=== PATIENT | female | born 1960 | race Caucasian/White ===

== ENCOUNTER 2023-08-18 20:53 | Inpatient (IN) | payer MEDICARE, OTHER ==
[~2023-08-18] VITALS: Ht 152.4 cm; Wt 69.4 kg
[2023-08-18] MEDS ORDERED: REMEDY ESSENTIAL ZINC PASTE 113 GM TOP PRN (21:15)
[2023-08-18 21:30] VITALS: BP 164/93; TEMP 98.1; O2SAT 97
[2023-08-18] MEDS ORDERED: OXYCODONE HCL 5 MG TABLET PO PRN (22:00)
[2023-08-18] MEDS ORDERED: CARB1TAB21 PO ×6 (22:30)
[2023-08-18] MEDS ORDERED: CEPH250C PO (22:30)
[2023-08-18] MEDS ORDERED: HALO5TAB12 PO ×2 (22:30)
[2023-08-18] MEDS ORDERED: LABE100T5 PO (22:30)
[2023-08-18] MEDS ORDERED: BENZ-13 PO (22:30)
[2023-08-18] MEDS ORDERED: ALBU8.5H8 INH ×2 (22:30)
[2023-08-18] MEDS ORDERED: BENZ1TAB7 PO (22:30)
[2023-08-18] MEDS: HYDROMORPHONE HCL 2 MG TABLET PO PRN (22:47)
[2023-08-18 23:00] VITALS: BP 145/81; TEMP 98.4; O2SAT 97
[2023-08-18] MEDS ORDERED: MAGN200T4 PO (23:36)
[2023-08-18] MEDS ORDERED: MYCO180T3 PO (23:36)
[2023-08-18] MEDS ORDERED: ONDA4TAB5 PO (23:36)
[2023-08-18] MEDS ORDERED: MULT-1119 PO (23:36)
[2023-08-18] MEDS ORDERED: PRED2.5T PO (23:36)
[2023-08-18] MEDS ORDERED: ONDA4TAB11 PO (23:36)
[2023-08-18] MEDS ORDERED: TACR1CAP2 PO (23:36)
[2023-08-18] MEDS ORDERED: VALG450T4 PO (23:36)
[2023-08-18] MEDS ORDERED: PANT40TA2 PO (23:36)
[2023-08-19 01:12] VITALS: O2SAT 98
[2023-08-19 05:56] VITALS: BP 130/75; TEMP 98.3; O2SAT 97
[2023-08-19 08:00] VITALS: BP 113/75; TEMP 98.4; O2SAT 98
[2023-08-19] MEDS: HYDROMORPHONE HCL 2 MG TABLET PO PRN ×2 (11:59→22:43)
[2023-08-19] MEDS ORDERED: HALO5TAB PO (12:00)
[2023-08-19] MEDS ORDERED: TACROLIMUS PO (12:03)
[2023-08-19] MEDS ORDERED: CARB1TAB21 PO (12:12)
[2023-08-19] MEDS ORDERED: BENZONATATE 100 MG CAPSULE PO PRN (12:30)
[2023-08-19] MEDS ORDERED: predniSONE 5 MG TABLET PO SCH (13:00)
[2023-08-19] MEDS: MAGNESIUM OXIDE 400 MG TABLET PO SCH ×2 (13:18→17:24)
[2023-08-19 14:06] VITALS: O2SAT 98
[2023-08-19 15:04] VITALS: BP 122/78; TEMP 98.2; O2SAT 96
[2023-08-19] MEDS: predniSONE 5 MG TABLET PO SCH (15:04)
[2023-08-19] MEDS: CARBIDOPA/LEVODOPA 25-100MG TABLET PO SCH (15:04)
[2023-08-19] MEDS ORDERED: LEVO25TA9 PO (16:27)
[2023-08-19] MEDS ORDERED: MYCOPHENOLATE SODIUM 540 MG PO SCH (17:00)
[2023-08-19] MEDS: HALOPERIDOL 5 MG TABLET PO SCH (17:24)
[2023-08-19] MEDS: MYCOPHENOLATE SODIUM 180 MG TABLET.DR PO SCH (17:24)
[2023-08-19 20:11] VITALS: BP 145/91; TEMP 98.8; O2SAT 95
[2023-08-20 04:41] VITALS: BP 139/79; TEMP 98.2; O2SAT 98
[2023-08-20] MEDS: LEVOTHYROXINE SODIUM 25 MCG TABLET PO SCH (06:27)
[2023-08-20 08:00] VITALS: BP 140/80; TEMP 98.2; O2SAT 98
[2023-08-20] MEDS ORDERED: ONDANSETRON ODT 4 MG TAB.RAPDIS SL PRN (08:15)
[2023-08-20] MEDS: TACROLIMUS ANHYDROUS 0.5 MG CAPSULE PO SCH (08:25)
[2023-08-20] MEDS: MAGNESIUM OXIDE 400 MG TABLET PO SCH ×3 (08:26→16:23)
[2023-08-20] MEDS: PANTOPRAZOLE SODIUM 40 MG TABLET.DR PO SCH (08:26)
[2023-08-20] MEDS: BENZTROPINE MESYLATE 1 MG TABLET PO SCH (08:26)
[2023-08-20] MEDS: CARBIDOPA/LEVODOPA 25-100MG TABLET PO SCH (08:26)
[2023-08-20] MEDS: predniSONE 5 MG TABLET PO SCH (08:26)
[2023-08-20] MEDS: HALOPERIDOL 5 MG TABLET PO SCH ×2 (08:26→16:23)
[2023-08-20] MEDS: LABETALOL HCL 100 MG TABLET PO SCH (08:26)
[2023-08-20] MEDS: MULTIVITAMINS,THERAPEUTIC TABLET PO SCH (08:26)
[2023-08-20] MEDS: NEPRO (VANILLA) 237 ML CAN PO SCH (08:27)
[2023-08-20] MEDS: MYCOPHENOLATE SODIUM 180 MG TABLET.DR PO SCH ×2 (08:27→16:24)
[2023-08-20] MEDS ORDERED: VALGANCICLOVIR HCL 450 MG PO SCH (09:00)
[2023-08-20] MEDS ORDERED: VALGANCICLOVIR 450 MG PO SCH (09:00)
[2023-08-20] MEDS ORDERED: TACROLIMUS ANHYDROUS PO SCH (09:00)
[2023-08-20] MEDS: HYDROMORPHONE HCL 2 MG TABLET PO PRN (11:35)
[2023-08-20] MEDS: VALGANCICLOVIR 450 MG PO SCH (12:14)
[2023-08-20 14:04] VITALS: BP 123/65; TEMP 98.1; O2SAT 96
[2023-08-20 18:35] VITALS: BP 122/63; TEMP 98; O2SAT 96
[2023-08-21 03:58] VITALS: BP 132/64; TEMP 98.1; O2SAT 97
[2023-08-21] MEDS: LEVOTHYROXINE SODIUM 25 MCG TABLET PO SCH (05:23)
[2023-08-21 08:00] VITALS: BP 152/85; TEMP 98.2; O2SAT 96
[2023-08-21] MEDS: LABETALOL HCL 100 MG TABLET PO SCH (08:56)
[2023-08-21] MEDS: BENZTROPINE MESYLATE 1 MG TABLET PO SCH (08:56)
[2023-08-21] MEDS: NEPRO (VANILLA) 237 ML CAN PO SCH (08:57)
[2023-08-21] MEDS: HYDROMORPHONE HCL 2 MG TABLET PO PRN ×2 (08:57→13:10)
[2023-08-21] MEDS: MAGNESIUM OXIDE 400 MG TABLET PO SCH ×3 (08:57→17:18)
[2023-08-21] MEDS: MULTIVITAMINS,THERAPEUTIC TABLET PO SCH (08:57)
[2023-08-21] MEDS: HALOPERIDOL 5 MG TABLET PO SCH ×2 (08:57→17:19)
[2023-08-21] MEDS: CARBIDOPA/LEVODOPA 25-100MG TABLET PO SCH (08:57)
[2023-08-21] MEDS: MYCOPHENOLATE SODIUM 180 MG TABLET.DR PO SCH ×2 (08:57→17:20)
[2023-08-21] MEDS: PANTOPRAZOLE SODIUM 40 MG TABLET.DR PO SCH (09:03)
[2023-08-21] MEDS: TACROLIMUS ANHYDROUS 0.5 MG CAPSULE PO SCH (09:03)
[2023-08-21] MEDS: predniSONE 5 MG TABLET PO SCH (09:10)
[2023-08-21] MEDS: DOCUSATE SODIUM 100 MG CAPSULE PO SCH ×2 (10:36→20:03)
[2023-08-21] MEDS: VALGANCICLOVIR 450 MG PO SCH (13:07)
[2023-08-21 15:47] VITALS: BP 131/79; TEMP 98.8; O2SAT 98
[2023-08-21 20:20] VITALS: BP 100/66; TEMP 97.8; O2SAT 97
[2023-08-22 04:41] VITALS: BP 120/67; TEMP 98.7; O2SAT 93
[2023-08-22] MEDS: HYDROMORPHONE HCL 2 MG TABLET PO PRN ×3 (05:36→13:40)
[2023-08-22] MEDS: LEVOTHYROXINE SODIUM 25 MCG TABLET PO SCH (05:36)
[2023-08-22 07:32] VITALS: BP 125/76; TEMP 97.9; O2SAT 98
[2023-08-22] MEDS: BENZTROPINE MESYLATE 1 MG TABLET PO SCH (08:36)
[2023-08-22] MEDS: CARBIDOPA/LEVODOPA 25-100MG TABLET PO SCH ×2 (08:36→16:56)
[2023-08-22] MEDS: TACROLIMUS ANHYDROUS 0.5 MG CAPSULE PO SCH (08:37)
[2023-08-22] MEDS: MAGNESIUM OXIDE 400 MG TABLET PO SCH ×3 (08:37→16:55)
[2023-08-22] MEDS: DOCUSATE SODIUM 100 MG CAPSULE PO SCH ×2 (08:38→20:33)
[2023-08-22] MEDS: MULTIVITAMINS,THERAPEUTIC TABLET PO SCH (08:38)
[2023-08-22] MEDS: HALOPERIDOL 5 MG TABLET PO SCH ×2 (08:38→16:56)
[2023-08-22] MEDS: predniSONE 5 MG TABLET PO SCH (08:38)
[2023-08-22] MEDS: PANTOPRAZOLE SODIUM 40 MG TABLET.DR PO SCH (08:38)
[2023-08-22] MEDS: LABETALOL HCL 100 MG TABLET PO SCH (08:38)
[2023-08-22] MEDS: MYCOPHENOLATE SODIUM 180 MG TABLET.DR PO SCH ×2 (08:43→16:59)
[2023-08-22] MEDS: NEPRO (VANILLA) 237 ML CAN PO SCH (08:43)
[2023-08-22] MEDS: VALGANCICLOVIR 450 MG PO SCH (12:20)
[2023-08-22 15:53] VITALS: BP 134/82; TEMP 98.4; O2SAT 98
[2023-08-22 20:00] VITALS: BP 137/72; TEMP 98.3; O2SAT 97
[2023-08-23] MEDS: HYDROMORPHONE HCL 2 MG TABLET PO PRN ×4 (03:08→23:15)
[2023-08-23 04:00] VITALS: BP 119/62; TEMP 98.4; O2SAT 95
[2023-08-23] MEDS: LEVOTHYROXINE SODIUM 25 MCG TABLET PO SCH (05:45)
[2023-08-23] MEDS: MULTIVITAMINS,THERAPEUTIC TABLET PO SCH (07:51)
[2023-08-23] MEDS: predniSONE 5 MG TABLET PO SCH (07:52)
[2023-08-23 07:54] VITALS: BP 115/77; TEMP 98.8; O2SAT 96
[2023-08-23] MEDS: CARBIDOPA/LEVODOPA 25-100MG TABLET PO SCH ×2 (08:13→16:34)
[2023-08-23] MEDS: BENZTROPINE MESYLATE 1 MG TABLET PO SCH (08:13)
[2023-08-23] MEDS: PANTOPRAZOLE SODIUM 40 MG TABLET.DR PO SCH (08:13)
[2023-08-23] MEDS: LABETALOL HCL 100 MG TABLET PO SCH (08:13)
[2023-08-23] MEDS: DOCUSATE SODIUM 100 MG CAPSULE PO SCH ×2 (08:14→20:07)
[2023-08-23] MEDS: NEPRO (VANILLA) 237 ML CAN PO SCH (08:14)
[2023-08-23] MEDS: MAGNESIUM OXIDE 400 MG TABLET PO SCH ×3 (08:14→16:34)
[2023-08-23] MEDS: HALOPERIDOL 5 MG TABLET PO SCH ×2 (08:14→16:34)
[2023-08-23] MEDS: TACROLIMUS ANHYDROUS 0.5 MG CAPSULE PO SCH (08:16)
[2023-08-23] MEDS: MYCOPHENOLATE SODIUM 180 MG TABLET.DR PO SCH ×2 (08:16→16:42)
[2023-08-23] MEDS: VALGANCICLOVIR 450 MG PO SCH (13:13)
[2023-08-23 15:43] VITALS: BP 105/63; TEMP 98.4; O2SAT 98
[2023-08-23 20:00] VITALS: BP 126/81; TEMP 98.5; O2SAT 97
[2023-08-24 04:00] VITALS: BP 129/72; TEMP 98.3; O2SAT 95
[2023-08-24] MEDS: HYDROMORPHONE HCL 2 MG TABLET PO PRN (06:26)
[2023-08-24] MEDS: LEVOTHYROXINE SODIUM 25 MCG TABLET PO SCH (06:26)
[2023-08-24 07:55] VITALS: BP 122/83; TEMP 98.4; O2SAT 98
[2023-08-24] MEDS: NEPRO (VANILLA) 237 ML CAN PO SCH (09:00)
[2023-08-24] MEDS: predniSONE 5 MG TABLET PO SCH (09:04)
[2023-08-24] MEDS: MULTIVITAMINS,THERAPEUTIC TABLET PO SCH (09:04)
[2023-08-24] MEDS: HALOPERIDOL 5 MG TABLET PO SCH ×2 (09:05→16:21)
[2023-08-24] MEDS: MAGNESIUM OXIDE 400 MG TABLET PO SCH ×3 (09:05→16:21)
[2023-08-24] MEDS: DOCUSATE SODIUM 100 MG CAPSULE PO SCH ×2 (09:05→20:56)
[2023-08-24] MEDS: BENZTROPINE MESYLATE 1 MG TABLET PO SCH (09:05)
[2023-08-24] MEDS: MYCOPHENOLATE SODIUM 180 MG TABLET.DR PO SCH ×2 (09:06→16:23)
[2023-08-24] MEDS: PANTOPRAZOLE SODIUM 40 MG TABLET.DR PO SCH (09:07)
[2023-08-24] MEDS: CARBIDOPA/LEVODOPA 25-100MG TABLET PO SCH ×2 (09:08→16:23)
[2023-08-24] MEDS: LABETALOL HCL 100 MG TABLET PO SCH (09:09)
[2023-08-24] MEDS: TACROLIMUS ANHYDROUS 0.5 MG CAPSULE PO SCH (09:20)
[2023-08-24] MEDS: VALGANCICLOVIR 450 MG PO SCH (12:09)
[2023-08-24 16:16] VITALS: BP 108/67; TEMP 98.2; O2SAT 95
[2023-08-24 22:13] VITALS: BP 110/66; TEMP 99.1; O2SAT 93
[2023-08-25] MEDS: LEVOTHYROXINE SODIUM 25 MCG TABLET PO SCH (06:42)
[2023-08-25 07:03] VITALS: BP 137/73; TEMP 98.4; O2SAT 96
[2023-08-25 07:50] VITALS: BP 143/81; TEMP 98.5; O2SAT 96
[2023-08-25] MEDS: predniSONE 5 MG TABLET PO SCH (09:44)
[2023-08-25] MEDS: BENZTROPINE MESYLATE 1 MG TABLET PO SCH (09:44)
[2023-08-25] MEDS: CARBIDOPA/LEVODOPA 25-100MG TABLET PO SCH ×2 (09:44→16:14)
[2023-08-25] MEDS: TACROLIMUS ANHYDROUS 0.5 MG CAPSULE PO SCH (09:44)
[2023-08-25] MEDS: MAGNESIUM OXIDE 400 MG TABLET PO SCH ×3 (09:44→16:14)
[2023-08-25] MEDS: DOCUSATE SODIUM 100 MG CAPSULE PO SCH ×2 (09:44→21:14)
[2023-08-25] MEDS: LABETALOL HCL 100 MG TABLET PO SCH (09:45)
[2023-08-25] MEDS: HALOPERIDOL 5 MG TABLET PO SCH ×2 (09:45→16:14)
[2023-08-25] MEDS: PANTOPRAZOLE SODIUM 40 MG TABLET.DR PO SCH (09:45)
[2023-08-25] MEDS: MULTIVITAMINS,THERAPEUTIC TABLET PO SCH (09:45)
[2023-08-25] MEDS: NEPRO (VANILLA) 237 ML CAN PO SCH (09:46)
[2023-08-25] MEDS: MYCOPHENOLATE SODIUM 180 MG TABLET.DR PO SCH ×2 (09:46→16:14)
[2023-08-25] MEDS: HYDROMORPHONE HCL 2 MG TABLET PO PRN (09:53)
[2023-08-25] MEDS: VALGANCICLOVIR 450 MG PO SCH (12:05)
[2023-08-25 15:38] VITALS: BP 114/69; TEMP 98; O2SAT 98
[2023-08-25 20:00] VITALS: BP 127/70; TEMP 97.5; O2SAT 97
[2023-08-26 04:15] VITALS: BP 133/67; TEMP 97.2; O2SAT 96
[2023-08-26] MEDS: LEVOTHYROXINE SODIUM 25 MCG TABLET PO SCH (05:53)
[2023-08-26 08:00] VITALS: BP 124/61; TEMP 98.3; O2SAT 96
[2023-08-26] MEDS: CARBIDOPA/LEVODOPA 25-100MG TABLET PO SCH ×2 (09:35→16:33)
[2023-08-26] MEDS: DOCUSATE SODIUM 100 MG CAPSULE PO SCH ×2 (09:35→20:48)
[2023-08-26] MEDS: TACROLIMUS ANHYDROUS 0.5 MG CAPSULE PO SCH (09:35)
[2023-08-26] MEDS: LABETALOL HCL 100 MG TABLET PO SCH (09:36)
[2023-08-26] MEDS: MAGNESIUM OXIDE 400 MG TABLET PO SCH ×3 (09:36→16:33)
[2023-08-26] MEDS: PANTOPRAZOLE SODIUM 40 MG TABLET.DR PO SCH (09:36)
[2023-08-26] MEDS: HALOPERIDOL 5 MG TABLET PO SCH ×2 (09:36→16:33)
[2023-08-26] MEDS: NEPRO (VANILLA) 237 ML CAN PO SCH (09:37)
[2023-08-26] MEDS: predniSONE 5 MG TABLET PO SCH (09:50)
[2023-08-26] MEDS: BENZTROPINE MESYLATE 1 MG TABLET PO SCH (09:50)
[2023-08-26] MEDS: MULTIVITAMINS,THERAPEUTIC TABLET PO SCH (09:50)
[2023-08-26] MEDS: MYCOPHENOLATE SODIUM 180 MG TABLET.DR PO SCH ×2 (09:50→16:33)
[2023-08-26] MEDS: HYDROMORPHONE HCL 2 MG TABLET PO PRN (10:16)
[2023-08-26] MEDS: VALGANCICLOVIR 450 MG PO SCH (12:49)
[2023-08-26 16:47] VITALS: BP 100/67; TEMP 97.8; O2SAT 97
[2023-08-26 20:00] VITALS: BP 100/63; TEMP 97.9; O2SAT 96
[2023-08-27 04:00] VITALS: BP 114/71; TEMP 98.1; O2SAT 96
[2023-08-27] MEDS: LEVOTHYROXINE SODIUM 25 MCG TABLET PO SCH (06:00)
[2023-08-27 08:00] VITALS: BP 126/66; TEMP 98.5; O2SAT 97
[2023-08-27] MEDS: BENZTROPINE MESYLATE 1 MG TABLET PO SCH (09:13)
[2023-08-27] MEDS: DOCUSATE SODIUM 100 MG CAPSULE PO SCH ×2 (09:13→20:44)
[2023-08-27] MEDS: predniSONE 5 MG TABLET PO SCH (09:13)
[2023-08-27] MEDS: CARBIDOPA/LEVODOPA 25-100MG TABLET PO SCH ×2 (09:13→16:21)
[2023-08-27] MEDS: PANTOPRAZOLE SODIUM 40 MG TABLET.DR PO SCH (09:13)
[2023-08-27] MEDS: TACROLIMUS ANHYDROUS 0.5 MG CAPSULE PO SCH (09:13)
[2023-08-27] MEDS: MULTIVITAMINS,THERAPEUTIC TABLET PO SCH (09:14)
[2023-08-27] MEDS: MAGNESIUM OXIDE 400 MG TABLET PO SCH ×3 (09:14→16:22)
[2023-08-27] MEDS: LABETALOL HCL 100 MG TABLET PO SCH (09:14)
[2023-08-27] MEDS: HALOPERIDOL 5 MG TABLET PO SCH ×2 (09:14→16:21)
[2023-08-27] MEDS: MYCOPHENOLATE SODIUM 180 MG TABLET.DR PO SCH ×2 (09:15→16:23)
[2023-08-27] MEDS: NEPRO (VANILLA) 237 ML CAN PO SCH (09:15)
[2023-08-27] MEDS: VALGANCICLOVIR 450 MG PO SCH (11:59)
[2023-08-27 16:26] VITALS: BP 99/63; TEMP 98.3; O2SAT 96
[2023-08-27 20:37] VITALS: BP 99/60; TEMP 98.5; O2SAT 97
[2023-08-28 05:21] VITALS: BP 121/74; TEMP 98.5; O2SAT 98
[2023-08-28] MEDS: LEVOTHYROXINE SODIUM 25 MCG TABLET PO SCH (06:39)
[2023-08-28 08:00] VITALS: BP 129/59; TEMP 98.2; O2SAT 96
[2023-08-28] MEDS: BENZTROPINE MESYLATE 1 MG TABLET PO SCH (08:51)
[2023-08-28] MEDS: DOCUSATE SODIUM 100 MG CAPSULE PO SCH ×3 (08:51→20:42)
[2023-08-28] MEDS: MULTIVITAMINS,THERAPEUTIC TABLET PO SCH (08:51)
[2023-08-28] MEDS: CARBIDOPA/LEVODOPA 25-100MG TABLET PO SCH ×2 (08:51→16:47)
[2023-08-28] MEDS: LABETALOL HCL 100 MG TABLET PO SCH (08:52)
[2023-08-28] MEDS: predniSONE 5 MG TABLET PO SCH (08:53)
[2023-08-28] MEDS: TACROLIMUS ANHYDROUS 0.5 MG CAPSULE PO SCH (08:53)
[2023-08-28] MEDS: PANTOPRAZOLE SODIUM 40 MG TABLET.DR PO SCH (08:53)
[2023-08-28] MEDS: HALOPERIDOL 5 MG TABLET PO SCH ×2 (08:53→16:47)
[2023-08-28] MEDS: NEPRO (VANILLA) 237 ML CAN PO SCH (08:54)
[2023-08-28] MEDS: MAGNESIUM OXIDE 400 MG TABLET PO SCH ×3 (08:54→16:48)
[2023-08-28] MEDS: MYCOPHENOLATE SODIUM 180 MG TABLET.DR PO SCH ×2 (09:02→16:48)
[2023-08-28] MEDS: HYDROMORPHONE HCL 2 MG TABLET PO PRN (10:31)
[2023-08-28] MEDS: VALGANCICLOVIR 450 MG PO SCH (12:27)
[2023-08-28 15:51] VITALS: BP 140/57; TEMP 97.6; O2SAT 97
[2023-08-28 20:00] VITALS: BP 114/62; TEMP 98; O2SAT 97
[2023-08-29 04:00] VITALS: BP 174/84; TEMP 98.3; O2SAT 97
[2023-08-29] MEDS: LEVOTHYROXINE SODIUM 25 MCG TABLET PO SCH (06:14)
[2023-08-29 08:00] VITALS: BP 154/79; TEMP 98.9; O2SAT 98
[2023-08-29] MEDS: CARBIDOPA/LEVODOPA 25-100MG TABLET PO SCH ×3 (09:06→16:08)
[2023-08-29] MEDS: LABETALOL HCL 100 MG TABLET PO SCH (09:07)
[2023-08-29] MEDS: PANTOPRAZOLE SODIUM 40 MG TABLET.DR PO SCH (09:08)
[2023-08-29] MEDS: BENZTROPINE MESYLATE 1 MG TABLET PO SCH (09:08)
[2023-08-29] MEDS: MULTIVITAMINS,THERAPEUTIC TABLET PO SCH (09:09)
[2023-08-29] MEDS: TACROLIMUS ANHYDROUS 0.5 MG CAPSULE PO SCH (09:09)
[2023-08-29] MEDS: DOCUSATE SODIUM 100 MG CAPSULE PO SCH ×2 (09:09→20:30)
[2023-08-29] MEDS: predniSONE 5 MG TABLET PO SCH (09:09)
[2023-08-29] MEDS: HALOPERIDOL 5 MG TABLET PO SCH ×2 (09:09→16:09)
[2023-08-29] MEDS: MAGNESIUM OXIDE 400 MG TABLET PO SCH ×3 (09:11→16:08)
[2023-08-29] MEDS: HYDROMORPHONE HCL 2 MG TABLET PO PRN ×2 (09:12→15:49)
[2023-08-29] MEDS: MYCOPHENOLATE SODIUM 180 MG TABLET.DR PO SCH ×2 (09:14→16:10)
[2023-08-29] MEDS: NEPRO (VANILLA) 237 ML CAN PO SCH (09:15)
[2023-08-29] MEDS: VALGANCICLOVIR 450 MG PO SCH (12:14)
[2023-08-29 16:40] VITALS: BP 130/80; TEMP 98; O2SAT 98
[2023-08-29 20:28] VITALS: BP 104/73; TEMP 97.7; O2SAT 97
[2023-08-30 04:42] VITALS: BP 105/54; TEMP 97.8; O2SAT 96
[2023-08-30] MEDS: LEVOTHYROXINE SODIUM 25 MCG TABLET PO SCH (06:24)
[2023-08-30 08:00] VITALS: BP 144/78; TEMP 98; O2SAT 97
[2023-08-30] MEDS: PANTOPRAZOLE SODIUM 40 MG TABLET.DR PO SCH (09:00)
[2023-08-30] MEDS: TACROLIMUS ANHYDROUS 0.5 MG CAPSULE PO SCH (09:00)
[2023-08-30] MEDS: HALOPERIDOL 5 MG TABLET PO SCH ×2 (09:00→17:03)
[2023-08-30] MEDS: MAGNESIUM OXIDE 400 MG TABLET PO SCH ×3 (09:01→17:02)
[2023-08-30] MEDS: BENZTROPINE MESYLATE 1 MG TABLET PO SCH (09:01)
[2023-08-30] MEDS: LABETALOL HCL 100 MG TABLET PO SCH (09:02)
[2023-08-30] MEDS: DOCUSATE SODIUM 100 MG CAPSULE PO SCH ×2 (09:02→20:12)
[2023-08-30] MEDS: HYDROMORPHONE HCL 2 MG TABLET PO PRN (09:02)
[2023-08-30] MEDS: MULTIVITAMINS,THERAPEUTIC TABLET PO SCH (09:02)
[2023-08-30] MEDS: predniSONE 5 MG TABLET PO SCH (09:02)
[2023-08-30] MEDS: CARBIDOPA/LEVODOPA 25-100MG TABLET PO SCH ×3 (09:02→17:03)
[2023-08-30] MEDS: NEPRO (VANILLA) 237 ML CAN PO SCH (09:03)
[2023-08-30] MEDS: MYCOPHENOLATE SODIUM 180 MG TABLET.DR PO SCH ×2 (09:05→17:07)
[2023-08-30] MEDS: VALGANCICLOVIR 450 MG PO SCH (12:00)
[2023-08-30 16:00] VITALS: BP 111/70; TEMP 97.5; O2SAT 99
[2023-08-30 20:00] VITALS: BP 148/60; TEMP 98.7; O2SAT 96
[2023-08-31] MEDS: LEVOTHYROXINE SODIUM 25 MCG TABLET PO SCH (05:54)
[2023-08-31 06:32] LABS: BASOPHILS # (AUTO) 0.1 K/UL (0.0-0.2); EOSINOPHILS # (AUTO) 0.2 K/uL (0.0-0.7); EOSINOPHILS % (AUTO) 2.7 % (0.0-7.0); HEMATOCRIT 34.9 % (31.2-41.9); HEMOGLOBIN 11.9 g/dL (10.9-14.3); LYMPHOCYTES % (AUTO) 30.6 % (20.5-51.5); MEAN CORPUSCULAR HEMOGLOBIN 32.9 uug (24.7-32.8); MEAN CORPUSCULAR HGB CONC 34 g/dL (32.3-35.6); MEAN CORPUSCULAR VOLUME 96.1 fL (75.5-95.3); MONOCYTES # (AUTO) 0.5 K/uL (0.1-1.30); MONOCYTES % (AUTO) 7.4 % (0.0-11.0); NEUTROPHILS # (AUTO) 3.8 K/uL (1.8-8.9); NEUTROPHILS % (AUTO) 58.3 % (38.5-71.5); PLATELET COUNT (AUTO) 256 K/uL (179-408); RED BLOOD CELL COUNT(AUTO) 3.63 MIL/uL (3.63-4.92); RED CELL DISTRIBUTION WIDTH 12.6 % (12.3-17.7); WHITE BLOOD COUNT (AUTO) 6.5 K/uL (3.8-11.8)
[2023-08-31 06:42] LABS: DIFFERENTIAL COMMENT 1
[2023-08-31 06:59] VITALS: BP 153/81; TEMP 98.2; O2SAT 99
[2023-08-31 07:45] VITALS: BP 150/81; TEMP 98.5; O2SAT 96
[2023-08-31 07:47] LABS: ALBUMIN 3.3 g/dL (3.4-5.0); BILIRUBIN,TOTAL 0.5 mg/dL (0.2-1.0); CALCIUM 9.3 mg/dL (8.5-10.1); CREATININE 0.8 mg/dL (0.6-1.3); PHOSPHOROUS 3.5 mg/dL (2.5-4.9); TOTAL PROTEIN, SERUM 6.4 g/dL (6.4-8.2)
[2023-08-31] MEDS: DOCUSATE SODIUM 100 MG CAPSULE PO SCH (09:00)
[2023-08-31] MEDS: TACROLIMUS ANHYDROUS 0.5 MG CAPSULE PO SCH (09:26)
[2023-08-31] MEDS: CARBIDOPA/LEVODOPA 25-100MG TABLET PO SCH ×2 (09:26→13:34)
[2023-08-31] MEDS: MYCOPHENOLATE SODIUM 180 MG TABLET.DR PO SCH (09:26)
[2023-08-31] MEDS: BENZTROPINE MESYLATE 1 MG TABLET PO SCH (09:26)
[2023-08-31] MEDS: MAGNESIUM OXIDE 400 MG TABLET PO SCH ×2 (09:26→13:34)
[2023-08-31 09:27] VITALS: BP 150/81
[2023-08-31] MEDS: predniSONE 5 MG TABLET PO SCH (09:27)
[2023-08-31] MEDS: PANTOPRAZOLE SODIUM 40 MG TABLET.DR PO SCH (09:27)
[2023-08-31] MEDS: MULTIVITAMINS,THERAPEUTIC TABLET PO SCH (09:27)
[2023-08-31] MEDS: HALOPERIDOL 5 MG TABLET PO SCH (09:27)
[2023-08-31] MEDS: LABETALOL HCL 100 MG TABLET PO SCH (09:27)
[2023-08-31] MEDS: NEPRO (VANILLA) 237 ML CAN PO SCH (09:28)
[2023-08-31] MEDS: VALGANCICLOVIR 450 MG PO SCH (12:26)
[2023-08-31] MEDS: HYDROMORPHONE HCL 2 MG TABLET PO PRN (15:09)
[2023-09-05] MEDS ORDERED: CARBIDOPA/LEVODOPA 25-100MG TABLET PO SCH (09:00)
[2023-09-12] MEDS ORDERED: CARBIDOPA/LEVODOPA 25-100MG TABLET PO SCH (13:00)
[2023-09-19] MEDS ORDERED: CARBIDOPA/LEVODOPA 25-100MG TABLET PO SCH (09:00)
== END 2023-08-31 15:45 | disposition home health service (06) | DRG 560 ==
PROVIDERS: ADMIT Physical Medicine & Rehabilitation Pain Medicine; ATTEND Physical Medicine & Rehabilitation Pain Medicine
DX: S32.592D Other specified fracture of left pubis, subsequent encounter for fracture with routine healing (principal); E87.1 Hypo-osmolality and hyponatremia; N39.0 Urinary tract infection, site not specified; Z94.0 Kidney transplant status; W19.XXXD Unspecified fall, subsequent encounter; I10 Essential (primary) hypertension; M41.86 Other forms of scoliosis, lumbar region; S22.009D Unspecified fracture of unspecified thoracic vertebra, subsequent encounter for fracture with routine healing; W18.30XD Fall on same level, unspecified, subsequent encounter; M41.9 Scoliosis, unspecified; G20.A1 Parkinson's disease without dyskinesia, without mention of fluctuations; Z88.5 Allergy status to narcotic agent; Z88.8 Allergy status to other drugs, medicaments and biological substances; Z91.018 Allergy to other foods; R53.1 Weakness
CPT/HCPCS: 36415; 83735; 84100; 84443; 85025; 97535-GO-CO; J7507; J7512; J7517; Q0162